=== PATIENT | female | born 1940 | race Caucasian/White ===

== ENCOUNTER → 2017-02-08 | Outpatient (CLI) | payer MEDICARE, OTHER ==
[~2017-02-08] MED LIST: AMLO5TAB2 PO; BIOT10TA PO; BIOT800T2 PO; BUTA1CAP10 PO; CHOL1CAP6 PO; CYAN1000P IM; ESTR1 PO; ESTR2TAB PO; FOLI200T PO; FOLI800T PO; HYDR-2376 PO; HYDR-2768 PO; I-CAP PO; ICAPCAP PO; LEVO.075 PO; MAGN400T19 PO; METF500T PO; METH2.5 IM; METH2.5T PO; METH25IN13 IM; NAPR220C22 PO; POTA-243 PO; PROT40TA PO; ROSU10 PO; ROSU5 PO; SYNT88TA PO; TIMO0.5S6 OU; TYLE325T PO; VALS1TAB70 PO; VITA2000 PO
== END ==
LOC: PHPRE 08:56
PROVIDERS: ATTEND Orthopaedic Surgery
DX: Z00.00 Encounter for general adult medical examination without abnormal findings (principal)

== ENCOUNTER → 2017-02-15 | Day surgery (SDC) | payer MEDICARE, OTHER ==
[~2017-02-15] VITALS: Ht 172.7 cm; Wt 60.7 kg
[~2017-02-15] MED LIST changes: +ACETAMINOPHEN/HYDROcodone 325 MG/5 MG TAB PO PRN; -BIOT800T2 PO; +BUPIVACAINE/EPINEPHRINE 0.5% 50 ML VIAL ONE; +CHLORHEXIDINE GLUCONATE 2 % 1 PACK (2 CLOTHS) TOPICAL PRN; -CHOL1CAP6 PO; -CYAN1000P IM; +DEXAMETHASONE SOD PHOS 4 MG/ML VIAL IV ONE; +DO NOT ADM ANY ANTICOAGULANT DRUGS PRN; -ESTR2TAB PO; +FAMOTIDINE 20 MG/2 ML VIAL ONE; -FOLI200T PO; -HYDR-2768 PO; -I-CAP PO; +INSULIN HUMAN REGULAR 1,000 UNITS/10 ML VIAL SQ PRN; +LACTATED RINGER'S 1000 ML INJ 1,000 ML IV SCH; +LACTATED RINGER'S 1000 ML IV PRN; +LIDOCAINE 1%/EPINEPHrine 1:100,000 SOLN 50 ML VIAL ONE; +LIDOCAINE HCL 1% PF 5 ML AMPULE OTHER ONE; -MAGN400T19 PO; -METH2.5 IM; +METOPROLOL TARTRATE 25 MG TAB PO PRN; +MORPHINE SULFATE 4 MG/ML INJ IV PUSH PRN; +ONDANSETRON HCL 4 MG/2 ML VIAL IV PUSH ONE; +ONDANSETRON HCL 4 MG/2 ML VIAL IV PUSH PRN; -POTA-243 PO; +POVIDONE IODINE 5% (ANTISEPSIS KIT) 4 APPLICATIONS EACH NARE PRN; +POVIDONE IODINE 7.5% SCRUB 118 ML BOTTLE TOPICAL SCH; +PROPOFOL 200 MG/20 ML AMP IV ONE; -ROSU5 PO; +SODIUM CHLORID 0.9% 500 ML IV PRN; +SODIUM CHLORIDE 0.9% FLUSH 5 ML FLUSH IVF PRN; +SODIUM CHLORIDE 0.9% FLUSH 5 ML FLUSH IVF SCH; -SYNT88TA PO; -TIMO0.5S6 OU
--- NOTE | 2017-02-15 14:53 | RADRPT ---
EXAM DATE/TIME: 02/15/2017 14:02 [place] COMPARISON: No previous studies available for comparison. INDICATIONS : Post op hardware removal of the left foot. MEDICAL HISTORY : None. SURGICAL HISTORY : ORIF left foot. ENCOUNTER: Initial ACUITY: 1 day PAIN SCORE: Non-responsive. LOCATION: Left foot. CONCLUSION: Fluoroscopic images are seen during removal of hardware. Metallic density remains within the head of the third metatarsal and proximal phalanx of the great toe. There are some deformities of the first a nd second metatarsals. Umesh Marte MD on February 15, 2017 at 14:50 Board Certified Radiologist. This report was verified electronically.
[2017-02-15 15:15] VITALS: BP 151/70; PULSE 60; RESP 16; TEMP 97.5; O2SAT 100
--- NOTE | 2017-02-16 09:20 | MP ---
cc: MERYL LOUIS DATE OF SURGERY 02/15/2017 PREOPERATIVE DIAGNOSIS Painful screw left foot. POSTOPERATIVE DIAGNOSIS Painful screw left foot. OPERATIVE PROCEDURE Removal of screw left foot. SURGEON Dr. Louis ANESTHESIA General TECHNIQUE After induction of general anesthesia, the left foot was thoroughly prepped with Chloraprep and draped in routine fashion. The screw head could be palpated subcutaneously on the medial aspect of the first metatarsal head. A vertical incision 1 cm long was made, deepened down to the screw. The head was identified. A small star screwdriver from the [employer] set used to remove the screw without much difficulty. The wound was closed with interrupted 4-0 nylon vertical mattress sutures. Dressings were applied with Xeroform, 4 x 4's, Carisa and Jason. The patient transferred to the recovery room in satisfactory condition. The patient tolerated the procedure well. Transfusions and complications, none. Postop condition, satisfactory. Prognosis, good. MD JALEEL Delatorre/SHANICE /2:17 PM /9:17 AM
== END | disposition home or self-care (01) ==
LOC: HSDC 08:54
PROVIDERS: ATTEND Orthopaedic Surgery
DX: T84.84XA Pain due to internal orthopedic prosthetic devices, implants and grafts, initial encounter (principal); M79.672 Pain in left foot
CPT/HCPCS: 01480; 20680; 73620; 76000; J1100; J2405; J3010; J7120; L3260